=== PATIENT | female | born 1960 | race Caucasian/White ===

== ENCOUNTER 2021-09-16 17:06 | Emergency (ER) | payer BC, OTHER ==
[~2021-09-16] VITALS: Ht 157.5 cm; Wt 70.3 kg
[~2021-09-16 17:06] MED LIST: HYDROCHLOROTHIA25 MG PO; NAPROSYN500 MG PO; PRIMPRO PO; SIMVASTATIN40 MG PO; ULTRAM50 MG PO; ZESTRIL2.5 MG PO
[2021-09-16] MEDS ORDERED: ONDANSETRON HCL INJ 2MG/ML 2ML 2 MG/ML VIAL IV STA (17:37)
[2021-09-16] MEDS ORDERED: Morphine 4mg INJECTION 4 MG/ML INJ IV ONE (17:45)
[2021-09-16] MEDS ORDERED: SODIUM CHLORIDE 0.9% 1000ML 1,000 ML IV ONE (17:45)
[2021-09-16] MEDS ORDERED: DICYCLOMINE HCL 20 MG/2 ML VIAL IM ONE (17:45)
[2021-09-16 18:19] LABS: BASOPHILS % 0.3 % (0.0-1.0); EOSINOPHILS # (AUTO) 0.1 (0.0-0.4); EOSINOPHILS % 1.5 % (0.0-6.0); HEMOGLOBIN 14.9 g/dL (12.0-16.0); LYMPHOCYTES # (AUTO) 2.2 (1.0-3.2); LYMPHOCYTES % 25.1 % (18.0-39.1); MEAN CORPUSCULAR HEMOGLOBIN 32.7 pg (28-32); MEAN CORPUSCULAR HGB CONC 33.1 g/dL (31-35); MEAN CORPUSCULAR VOLUME 98.7 fL (81-99); MONOCYTES # (AUTO) 0.6 (0.2-0.8); MONOCYTES % 6.7 % (4.4-11.3); NEUTROPHILS # (AUTO) 5.7 (2.1-6.9); NEUTROPHILS % 66.2 % (38.7-80.0); PLATELET COUNT 311 x10e3/uL (140-360); RED BLOOD COUNT 4.56 x10e6/uL (3.6-5.1); RED CELL DISTRIBUTION WIDTH 11.9 % (11.7-14.4)
[2021-09-16 18:22] LABS: CLARITY,URINE HAZY (CLEAR); COLOR,URINE YELLOW (YELLOW); KETONES,URINE TRACE (NEGATIVE); LEUKOCYTE ESTERASE ,URINE NEGATIVE (NEGATIVE); NITRITE,URINE NEGATIVE (NEGATIVE); PROTEIN,URINE DIPSTICK NEGATIVE (NEGATIVE)
[2021-09-16 18:23] LABS: BACTERIA,URINE FEW /HPF; EPITHELIAL CELLS,URINE FEW /LPF; RBC,URINE 0-5 /HPF (0-5); URINE UROBILINOGEN 0.2 mg/dL (0.2 - 1); WBC,URINE (MAN) 0-5 /HPF (0-5)
[2021-09-16 18:37] LABS: ALANINE AMINOTRANSFERASE 40 IU/L (0-55); ALBUMIN 4.2 g/dL (3.5-5.0); ALBUMIN/GLOBULIN RATIO 1.1 (0.8-2.0); ALKALINE PHOSPHATASE 121 IU/L (40-150); ANION GAP 15.7 mmol/L (8-16); BLOOD UREA NITROGEN 8 mg/dL (7-26); BUN/CREATININE RATIO 11 (6-25); CALCIUM 9.3 mg/dL (8.4-10.2); CARBON DIOXIDE 24 mmol/L (22-29); CHLORIDE 106 mmol/L (98-107); CREATINE KINASE 117 IU/L (29-168); CREATININE, SERUM 0.72 mg/dL (0.57-1.11); GLUCOSE 152 mg/dL (74-118); POTASSIUM 3.7 mmol/L (3.5-5.1); SODIUM 142 mmol/L (136-145)
[2021-09-16] MEDS ORDERED: IOPAMIDOL 370 MG/ML 100 ML INFUS..BTL INJ ONE (20:14)
[2021-09-16] MEDS ORDERED: DICYCLOMINE HCL20 MG PO (21:27)
[2021-09-16] MEDS ORDERED: PANTOPRAZOLE SO40 MG PO (21:27)
[2021-09-16] MEDS ORDERED: HYDROCODON-ACE1 EAC9 PO (21:27)
[2021-09-16] MEDS ORDERED: ONDANSETRON ODT4 MG PO (21:27)
== END 2021-09-16 21:30 | disposition home or self-care (01) ==
LOC: ER 17:36
DX: R10.11 Right upper quadrant pain (principal); R11.2 Nausea with vomiting, unspecified; M54.6 Pain in thoracic spine; I10 Essential (primary) hypertension; E78.00 Pure hypercholesterolemia, unspecified; Z85.3 Personal history of malignant neoplasm of breast; R94.31 Abnormal electrocardiogram [ECG] [EKG]
CPT/HCPCS: 36415; 74177; 76705; 80053; 81001; 82550; 82553; 83690; 84484; 85025; 99284; J0500; J2270; J2405; J7030; Q9967

== ENCOUNTER 2021-09-28 09:18 | Emergency (ER) | payer BC ==
[~2021-09-28] VITALS: Ht 157.5 cm; Wt 70.3 kg
[~2021-09-28 09:18] MED LIST changes: +DICYCLOMINE HCL20 MG PO; +HYDROCODON-ACE1 EAC9 PO; +ONDANSETRON ODT4 MG PO; +PANTOPRAZOLE SO40 MG PO
[2021-09-28] MEDS ORDERED: ONDANSETRON HCL INJ 2MG/ML 2ML 2 MG/ML VIAL IV STA (09:36)
[2021-09-28] MEDS ORDERED: DICYCLOMINE HCL 20 MG/2 ML VIAL IM ONE (09:45)
[2021-09-28] MEDS ORDERED: LACTATED RINGER'S 1,000 ML INJ ONE (09:45)
[2021-09-28 10:19] LABS: BASOPHILS % 0.3 % (0.0-1.0); EOSINOPHILS % 0.3 % (0.0-6.0); HEMATOCRIT 45.1 % (34.2-44.1); LYMPHOCYTES # (AUTO) 1.6 (1.0-3.2); LYMPHOCYTES % 18.4 % (18.0-39.1); MEAN CORPUSCULAR HEMOGLOBIN 33.1 pg (28-32); MEAN CORPUSCULAR HGB CONC 33.3 g/dL (31-35); MEAN CORPUSCULAR VOLUME 99.6 fL (81-99); MONOCYTES # (AUTO) 0.5 (0.2-0.8); MONOCYTES % 5.5 % (4.4-11.3); NEUTROPHILS # (AUTO) 6.6 (2.1-6.9); NEUTROPHILS % 75.2 % (38.7-80.0); PLATELET COUNT 328 x10e3/uL (140-360); RED BLOOD COUNT 4.53 x10e6/uL (3.6-5.1); RED CELL DISTRIBUTION WIDTH 12.7 % (11.7-14.4)
[2021-09-28] MEDS ORDERED: KETOROLAC TROMETHAMINE 30 MG/ML VIAL IV STA (10:27)
[2021-09-28] MEDS ORDERED: METHOCARBAMOL 100MG/1ML 10ML VIAL IV ONE ×2 (10:30)
[2021-09-28 10:34] LABS: CLARITY,URINE CLEAR (CLEAR); COLOR,URINE YELLOW (YELLOW)
[2021-09-28 10:35] LABS: KETONES,URINE NEGATIVE (NEGATIVE); LEUKOCYTE ESTERASE ,URINE NEGATIVE (NEGATIVE); NITRITE,URINE NEGATIVE (NEGATIVE); PROTEIN,URINE DIPSTICK NEGATIVE (NEGATIVE); URINE UROBILINOGEN 0.2 mg/dL (0.2 - 1)
[2021-09-28 10:42] LABS: ALBUMIN 4.2 g/dL (3.5-5.0); ALBUMIN/GLOBULIN RATIO 1.1 (0.8-2.0); ANION GAP 13.8 mmol/L (8-16); CALCIUM 9.6 mg/dL (8.4-10.2); CREATININE, SERUM 0.68 mg/dL (0.57-1.11); POTASSIUM 3.8 mmol/L (3.5-5.1)
[2021-09-28 11:00] LABS: BACTERIA,URINE RARE /HPF; EPITHELIAL CELLS,URINE FEW /LPF; RBC,URINE 0-5 /HPF (0-5); TRANSITIONAL EPI CELLS,URINE RARE; WBC,URINE (MAN) 0-5 /HPF (0-5)
[2021-09-28] MEDS ORDERED: CYCLOBENZAPRINE5 MG PO (11:59)
[2021-09-28] MEDS ORDERED: LIDOCAINE1 EAC1 EXT (12:00)
[2021-09-28 12:25] VITALS: BP 144/86
[2021-09-29] MEDS ORDERED: METOPROLOL SUCC50 MG PO (09:13)
[2021-09-29] MEDS ORDERED: VITAMIN B122500 MCG (09:15)
[2021-09-29] MEDS ORDERED: OXYBUTYNIN CHLOR5 MG PO (09:15)
== END 2021-09-28 12:15 | disposition home or self-care (01) ==
LOC: ER 09:37
DX: R10.11 Right upper quadrant pain (principal); M54.9 Dorsalgia, unspecified; R11.0 Nausea; I10 Essential (primary) hypertension; E78.5 Hyperlipidemia, unspecified; Z85.3 Personal history of malignant neoplasm of breast; R94.31 Abnormal electrocardiogram [ECG] [EKG]
CPT/HCPCS: 36415; 80053; 81001; 83690; 84484; 85025; 93005; 99283; C9113; J0500; J2405; J2800; J7121; J1885

== ENCOUNTER → 2021-09-29 | Day surgery (SDC) | payer BC ==
[~2021-09-29] MED LIST changes: +CYCLOBENZAPRINE5 MG PO; +FENTANYL CITRATE/PF 100MCG/2 ML INJ ONE; +LIDOCAINE1 EAC1 EXT; +METOCLOPRAMIDE HCL 10 MG/2ML VIAL ONE; +METOPROLOL SUCC50 MG PO; +MIDAZOLAM HCL 2 MG/2 ML VIAL ONE; +OXYBUTYNIN CHLOR5 MG PO; +PROPOFOL IV EMULSION 10 MG/ML 20 ML VIAL ONE; +VITAMIN B122500 MCG
[2021-09-29 16:40] VITALS: BP 143/79
== END | disposition home or self-care (01) ==
LOC: ENDO 13:43
PROVIDERS: ATTEND Internal Medicine Gastroenterology
DX: K20.90 Esophagitis, unspecified without bleeding (principal); K29.70 Gastritis, unspecified, without bleeding; R13.10 Dysphagia, unspecified; K21.9 Gastro-esophageal reflux disease without esophagitis; K44.9 Diaphragmatic hernia without obstruction or gangrene; Z85.3 Personal history of malignant neoplasm of breast; I10 Essential (primary) hypertension; Z88.5 Allergy status to narcotic agent; F41.9 Anxiety disorder, unspecified; Z87.440 Personal history of urinary (tract) infections; J44.9 Chronic obstructive pulmonary disease, unspecified; F17.200 Nicotine dependence, unspecified, uncomplicated; Z01.812 Encounter for preprocedural laboratory examination; Z20.822 Contact with and (suspected) exposure to COVID-19
CPT/HCPCS: 0223U; 36415; 43239; 43450; C9113; J2250; J2704; J2765; J3010

== ENCOUNTER → 2021-10-17 | Outpatient (CLI) | payer BC ==
[~2021-10-17] MED LIST changes: -FENTANYL CITRATE/PF 100MCG/2 ML INJ ONE; +LIDOCAINE HCL 1% LOCAL INJ 20 ML VIAL ONE; -METOCLOPRAMIDE HCL 10 MG/2ML VIAL ONE; -MIDAZOLAM HCL 2 MG/2 ML VIAL ONE; -PROPOFOL IV EMULSION 10 MG/ML 20 ML VIAL ONE
== END ==
LOC: NM 13:13
PROVIDERS: ATTEND Internal Medicine Gastroenterology
DX: R10.84 Generalized abdominal pain (principal)
CPT/HCPCS: 78227; A9537; J2001

== ENCOUNTER 2023-11-04 16:40 | Emergency (ER) | payer BC ==
[~2023-11-04] VITALS: Ht 157.5 cm; Wt 70.3 kg
[~2023-11-04 16:40] MED LIST changes: +ASPIRIN81 MG PO; +COZAAR25 MG PO; +DIFLUCAN100 MG PO; -LIDOCAINE HCL 1% LOCAL INJ 20 ML VIAL ONE; +PROMETHAZINE HC25 M1 PO; +PROMETHAZINE12.5 MG PR; +RELPAX40 MG PO; +SUCRALFATE1 GM PO; +SYMBICORT 16010.2 GM INH; +TRINTELLIX20 MG PO
[2023-11-04 17:10] VITALS: TEMP 97.8
[2023-11-04 17:45] LABS: WHITE BLOOD COUNT 13.48 x10e3/uL (4.8-10.8)
[2023-11-04 17:46] LABS: BASOPHILS % 0.3 % (0.0-1.0); EOSINOPHILS % 0.1 % (0.0-6.0); HEMOGLOBIN 15.9 g/dL (12.0-16.0); LYMPHOCYTES # (AUTO) 2.2 (1.0-3.2); LYMPHOCYTES % 16.4 % (18.0-39.1); MEAN CORPUSCULAR HEMOGLOBIN 33.8 pg (28-32); MEAN CORPUSCULAR HGB CONC 33.8 g/dL (31-35); MEAN CORPUSCULAR VOLUME 99.8 fL (81-99); MONOCYTES # (AUTO) 0.9 (0.2-0.8); MONOCYTES % 6.3 % (4.4-11.3); NEUTROPHILS # (AUTO) 10.3 (2.1-6.9); NEUTROPHILS % 76.5 % (38.7-80.0); PLATELET COUNT 334 x10e3/uL (140-360); RED BLOOD COUNT 4.71 x10e6/uL (3.6-5.1); RED CELL DISTRIBUTION WIDTH 12.3 % (11.7-14.4)
[2023-11-04 17:54] LABS: ALBUMIN 4.6 g/dL (3.5-5.0); ALBUMIN/GLOBULIN RATIO 1.4 (0.8-2.0); BILIRUBIN,TOTAL 0.9 mg/dL (0.2-1.2); CALCIUM 10.3 mg/dL (8.4-10.2); CREATININE, SERUM 1.44 mg/dL (0.57-1.11); INR 0.89; PARTIAL THROMBOPLASTIN TIME 24.1 seconds (23.8-35.5); PROTHROMBIN TIME 12.5 seconds (11.9-14.5); TOTAL PROTEIN 7.8 g/dL (6.5-8.1)
[2023-11-04] MEDS ORDERED: IOPAMIDOL 370 MG/ML 100 ML INFUS..BTL INJ ONE (18:05)
[2023-11-04] MEDS ORDERED: SODIUM CHLORIDE 0.9% 100 ML ONE (18:05)
[2023-11-04] MEDS: SODIUM CHLORIDE 0.9% 1000ML 1,000 ML IV STA (18:26)
[2023-11-04 18:52] LABS: BILIRUBIN,URINE SMALL (NEGATIVE); CLARITY,URINE SL CLOUDY (CLEAR); COLOR,URINE AMBER (YELLOW); GLUCOSE, URINE NEGATIVE (NEGATIVE); KETONES,URINE TRACE (NEGATIVE); LEUKOCYTE ESTERASE ,URINE NEGATIVE (NEGATIVE); NITRITE,URINE NEGATIVE (NEGATIVE); PH,URINE 5.5 (5 - 7); PROTEIN,URINE DIPSTICK 1+ (NEGATIVE); URINE UROBILINOGEN 0.2 mg/dL (0.2 - 1)
[2023-11-04 19:03] LABS: AMORPHOUS SEDIMENT,URINE MODERATE (FEW); BACTERIA,URINE MODERATE /HPF; EPITHELIAL CELLS,URINE MODERATE /LPF; RBC,URINE 0-5 /HPF (0-5); TRANSITIONAL EPI CELLS,URINE MODERATE
[2023-11-04 20:18] VITALS: PULSE 77; RESP 18; O2SAT 97
== END 2023-11-04 20:20 | disposition home or self-care (01) ==
LOC: ER 16:59
DX: R42 Dizziness and giddiness (principal); I95.9 Hypotension, unspecified; I10 Essential (primary) hypertension; I50.9 Heart failure, unspecified; E78.5 Hyperlipidemia, unspecified; F41.9 Anxiety disorder, unspecified; R94.31 Abnormal electrocardiogram [ECG] [EKG]; Z85.3 Personal history of malignant neoplasm of breast
CPT/HCPCS: 36415; 70496; 70498; 71045; 80053; 81001; 83880; 84484; 85025; 85610; 85730; 93005; 99284; J7030; J7050; Q9967

== ENCOUNTER 2024-11-01 20:36 | Inpatient (IN) | payer BC, OTHER ==
[~2024-11-01] VITALS: Ht 157.5 cm; Wt 64.4 kg
[2024-11-01 20:36] VITALS: TEMP 99.1
[2024-11-01] MEDS ORDERED: SODIUM CHLORIDE FLUSH 10 ML SYR IV PRN (20:45)
[2024-11-01] MEDS: LEVOFLOXACIN 750MG/D5W 150ML 150 ML IV SCH (21:18)
[2024-11-01 21:19] VITALS: PULSE 77; RESP 18; O2SAT 96
[2024-11-01] MEDS: BENZONATATE 100 MG CAP PO STA (21:19)
[2024-11-01] MEDS: SODIUM CHLORIDE 0.9% 1000ML 1,000 ML IV ONE (21:19)
[2024-11-01] MEDS: METHYLPREDNISOLONE SOD SUCC 125 MG/2ML VIAL IV ONE (21:19)
[2024-11-01] MEDS: ALBUTEROL/IPRATROPIUM 3 ML NEB NEB ONE (21:19)
[2024-11-01 21:22] LABS: BASOPHILS % 0.2 % (0.0-1.0); EOSINOPHILS % 0.8 % (0.0-6.0); LYMPHOCYTES % 17.2 % (18.0-39.1); MONOCYTES % 6.9 % (4.4-11.3); NEUTROPHILS % 74.3 % (38.7-80.0); RED CELL DISTRIBUTION WIDTH 12.5 % (11.7-14.4)
[2024-11-01 21:33] LABS: EST GLOMERULAR FILTRATION RATE 102.0 ML/MIN (>=60)
[2024-11-01 21:58] LABS: B-TYPE NATRIURETIC PEPTIDE2 25.6 pg/mL (0-100)
[2024-11-01 22:02] LABS: CORONAVIRUS COVID-19 AG NEGATIVE (NEGATIVE)
[2024-11-01 22:50] LABS: LEUKOCYTE ESTERASE ,URINE NEGATIVE (NEGATIVE); PROTEIN,URINE DIPSTICK NEGATIVE (NEGATIVE); URINE UROBILINOGEN 0.2 mg/dL (0.2 - 1)
[2024-11-01 22:56] LABS: EPITHELIAL CELLS,URINE MODERATE /LPF; WBC,URINE (MAN) 0-5 /HPF (0-5)
[2024-11-01] MEDS ORDERED: ONDANSETRON HCL INJ 2MG/ML 2ML 2 MG/ML VIAL IV PRN (23:15)
[2024-11-01] MEDS ORDERED: Morphine 2mg Syringe 2 MG/ML SYR IV PRN (23:15)
[2024-11-01] MEDS: CEFEPIME 2 GM in SODIUM CHLORIDE 0.9% 100 ML IV ONE (23:34)
[2024-11-01 23:45] VITALS: PULSE 85; RESP 20
[2024-11-02] VITALS (11 sets, daily range): BP systolic 141–160; BP diastolic 78–86; PULSE 74–95; RESP 17–20; TEMP 97.9–98.7; O2SAT 93–100
[2024-11-02] MEDS ORDERED: IOPAMIDOL 370 MG/ML 100 ML INFUS..BTL INJ ONE (00:46)
[2024-11-02] MEDS: SODIUM CHLORIDE 0.9% 1000ML 1,000 ML IV SCH (00:49)
[2024-11-02 01:49] LABS: INR 0.92
[2024-11-02] MEDS ORDERED: DICYCLOMINE HCL20 MG PO (04:14)
[2024-11-02] MEDS ORDERED: VILAZODONE HCL40 MG PO (04:16)
[2024-11-02] MEDS: BENZONATATE 100 MG CAP PO PRN (04:29)
[2024-11-02] MEDS: ACETAMINOPHEN 325 MG TAB PO PRN (04:30)
[2024-11-02] MEDS ORDERED: BENZONATATE 100 MG CAP PO SCH (09:00)
[2024-11-02] MEDS ORDERED: ALBUTEROL/IPRATROPIUM 3 ML NEB ONE (15:11)
[2024-11-02] MEDS: ALBUTEROL/IPRATROPIUM 3 ML NEB INH ONE (15:42)
[2024-11-02] MEDS: OXYBUTYNIN CHLORIDE 5 MG TAB PO SCH (16:27)
[2024-11-02] MEDS: GUAIFENESIN 600MG/DEXTROMETHORPHAN 30MG TABSR PO SCH (16:27)
[2024-11-02] MEDS: METOPROLOL SUCCINATE 50 MG TAB XL PO SCH (16:27)
[2024-11-02] MEDS: LOSARTAN POTASSIUM 25 MG TAB PO SCH (16:27)
[2024-11-02 17:03] LABS: BASOPHILS % 0.2 % (0.0-1.0); EOSINOPHILS % 0.0 % (0.0-6.0); LYMPHOCYTES % 12.4 % (18.0-39.1); MONOCYTES % 2.9 % (4.4-11.3); NEUTROPHILS % 83.8 % (38.7-80.0); RED CELL DISTRIBUTION WIDTH 12.6 % (11.7-14.4)
[2024-11-02 17:32] LABS: EST GLOMERULAR FILTRATION RATE 102.0 ML/MIN (>=60)
[2024-11-02] MEDS: ALBUTEROL/IPRATROPIUM 3 ML NEB NEB SCH (19:58)
[2024-11-02] MEDS: BUDESONIDE/FORMOTEROL 160/4.5MCG INHALER INH SCH (20:43)
[2024-11-02] MEDS: SIMVASTATIN 40 MG TAB PO SCH (21:11)
[2024-11-03] VITALS (12 sets, daily range): BP systolic 141–156; BP diastolic 78–90; PULSE 67–82; RESP 17–20; TEMP 98–99; O2SAT 92–98
[2024-11-03 06:33] LABS: BASOPHILS % 0.2 % (0.0-1.0); EOSINOPHILS % 0.1 % (0.0-6.0); LYMPHOCYTES % 30.6 % (18.0-39.1); MONOCYTES % 5.4 % (4.4-11.3); NEUTROPHILS % 63.1 % (38.7-80.0); RED CELL DISTRIBUTION WIDTH 12.9 % (11.7-14.4)
[2024-11-03 06:58] LABS: EST GLOMERULAR FILTRATION RATE 102.0 ML/MIN (>=60)
[2024-11-03] MEDS: VILAZODONE HCL 40 MG PO SCH (09:00)
[2024-11-03] MEDS: ASPIRIN 81 MG CHEW TAB PO SCH (09:15)
[2024-11-03] MEDS: ENOXAPARIN SOD INJ 40 MG/0.4 ML SYR SC SCH (17:08)
[2024-11-04] VITALS (8 sets, daily range): BP systolic 141–154; BP diastolic 81–93; PULSE 72–96; RESP 18–20; TEMP 98.4–98.8; O2SAT 95–97
[2024-11-04] MEDS ORDERED: Albuterol/Ipratropium Nebulize NEB (13:42)
[2024-11-04] MEDS ORDERED: ALBUTEROL1.25 MG/3 NEB (13:42)
[2024-11-04] MEDS ORDERED: LEVOFLOXACIN250 MG PO (13:44)
== END 2024-11-04 15:24 | disposition home or self-care (01) | DRG 871 ==
LOC: ER 20:39 → ERHOLD 23:15 → MED/SURG3 11-02 00:46
PROVIDERS: ADMIT Internal Medicine; ATTEND Internal Medicine
DX: A41.9 Sepsis, unspecified organism (principal); J15.69 Pneumonia due to other Gram-negative bacteria; I50.32 Chronic diastolic (congestive) heart failure; E78.5 Hyperlipidemia, unspecified; I11.0 Hypertensive heart disease with heart failure; J44.9 Chronic obstructive pulmonary disease, unspecified; F41.9 Anxiety disorder, unspecified; E66.9 Obesity, unspecified; E11.65 Type 2 diabetes mellitus with hyperglycemia; Z11.52 Encounter for screening for COVID-19; Z85.3 Personal history of malignant neoplasm of breast; Z86.16 Personal history of COVID-19; Z88.5 Allergy status to narcotic agent; Z79.82 Long term (current) use of aspirin; Z72.0 Tobacco use; Z92.3 Personal history of irradiation; Z68.25 Body mass index [BMI] 25.0-25.9, adult
CPT/HCPCS: 36415; 71045; 71260; 80048; 80053; 81001; 83605; 83880; 84484; 85025; 85379; 85610; 85730; 87040; 87086; 93005; 94640; 94664; 94760; 94799; 99284; J0692; J1650; J2919; J7030; J7050; Q9967